=== PATIENT | female | born 2005 | race Caucasian/White ===

== ENCOUNTER 2024-07-01 18:27 | Emergency (ER) | payer OTHER, SELFPAY ==
--- NOTE | ~2024-07-01 | CT_ITS ---
EXAMINATION: CT abdomen pelvis w con DATE: 07/01/2024 19:42 INDICATION: abdominal pain sudden onset today TECHNIQUE: Computed tomography (CT) of the abdomen and pelvis was performed with 100 mL Omnipaque-350 intravenous contrast. Automated exposure control and iterative reconstruction technique were employe d. The dose-length product was 207.57 mGy-cm. COMPARISON: None. FINDINGS: Lower thorax: Unremarkable Liver: Normal. Biliary/Gallbladder: Gallbladder is normal. No bile duct dilation. Pancreas: No mass or duct dilation. Spleen: Normal. Adrenals:No mass. Kidneys: No suspicious mass, obstructing stone, or hydronephrosis. Patchy areas of hypoenhancement in the left upper pole and lower pole. GI tract: Mild distal esophageal and gastric wall edema. No small or large bowel dilation. Normal portia endix. Mesentery/Peritoneum: No ascites, mass, or free air. Retroperitoneum: No mass. Pelvis: Partially distended urinary bladder with moderate wall thickening. Normal uterus and bilatera l ovaries.. Soft Tissues: Soft tissues and body wall unremarkable. Bones: No acute osseous finding. IMPRESSION: Mild esophagitis/gastritis. Patchy left renal enhancement as can be seen with pyelonephritis. Bladder wall thickening, may be secondary to incomplete distention or cystitis. Correlate with urinal ysis. Reviewed, dictated and finalized at location K. IMPRESSION: Mild esophagitis/gastritis. Patchy left renal enhancement as can be seen with pyelonephritis. Bladder wall thickening, may be secondary to incomplete distention or cystitis. Correlate with urinalysis.
[2024-07-01 18:31] VITALS: BP 121/79; PULSE 133; RESP 20; TEMP 38.1; O2SAT 100
--- NOTE | 2024-07-01 18:38 | ECG_ITS ---
Test Date: 2024-07-01 18:59:52 Measurements Intervals [place] Rate: 113 P: 75 IN: 131 QRS: 92 QRSD: 82 T: -57 QT: 296 QTc: 407 Interpretive Statements SINUS TACHYCARDIA BORDERLINE RIGHT AXIS DEVIATION [QRS AXIS > 90] ST DEVIATION AND MODERATE T-WAVE ABNORMALITY, CONSIDER ANTEROLATERAL ISCHEMIA [-0.1+ mV T WAVE IN V3-V6] ST DEVIATION AND MODERATE T-WAVE ABNORMALITY, CONSIDER INFERIOR ISCHEMIA [-0.1+ mV T WAVE IN II/aVF] No previous ECG available for comparison Electronically Signed On 07-02-2024 11:39:48 CDT by Bartolo Arriola M.D.
[2024-07-01 19:08] LABS: BEDSIDEPREGUCG Negative (Negative)
[2024-07-01 19:28] LABS: Basophils Percent Auto 0.2 % (0.2-1.2); Hematocrit 38.5 % (37.0-47.0); Hemoglobin 13.5 g/dL (12.0-15.0); Immature Granulocyte Absolute 0.13 K/mm3 (0.00-0.031); Immature Granulocyte Percent A 0.7 % (0-0.5); Lymphocytes Absolute Auto 1.03 K/mm3 (0.9-3.2); Lymphocytes Percent Auto 5.5 % (18.3-44.2); Mean Corpuscular HGB Conc 35.1 g/dl (32-36); Mean Corpuscular Hemoglobin 29.2 pg (26-34); Mean Corpuscular Volume 83.3 fl (80-100); Mean Platelet Volume 12.4 fl (7.4-10.4); Monocytes Absolute Auto 1.3 K/mm3 (0.1-0.6); Neutrophils Absolute Auto 16.2 K/mm3 (1.3-6.7); Neutrophils Percent Auto 86.6 % (45.5-73.1); Platelet Count Result 177 k/mm3 (150-375); Red Blood Count 4.62 M/mm3 (4.2-5.4); Red Cell Distribution Width 13.5 % (11.5-14.5); White Blood Count 18.7 K/mm3 (4.5-10.0)
[2024-07-01 19:38] LABS: Pregnancy On Board Control Positive; Urine Pregnancy Test Negative
[2024-07-01 19:39] LABS: Lactic Acid Reflex 1.8 mmol/L (0.7-2.0)
[2024-07-01 19:41] LABS: Alanine Aminotransferase 12 U/L (6-35); Albumin Level 4.6 g/dL (3.7-5.6); Alkaline Phosphatase 69 U/L (45-116); Anion Gap 12 mmol/L (4-12); Aspartate Amino Transferase 20 U/L (14-36); Bilirubin,Total 0.7 mg/dL (0.2-1.3); Blood Urea Nitrogen 10 mg/dL (8-21); CRP 5.3 mg/dL (<1.0); Calcium 9.7 mg/dL (8.9-10.7); Carbon Dioxide 24 mmol/L (22-30); Chloride 97 mmol/L (98-107); Estimated CRCL calculation 93 ml/min; Estimated Glomerular Filt Rate > 60; Glucose 113 mg/dL (65-110); Lipase 71 U/L (23-300); Potassium 3.7 mmol/L (3.4-5.0); Sodium 133 mmol/L (134-143)
[2024-07-01 19:43] LABS: INR 1.1; Partial Thromboplastin Time 27.5 Seconds (22.3-36.8); Prothrombin Time 14.7 Seconds (11.1-14.7)
[2024-07-01 19:46] LABS: Add Urine Microscopic? YES; Appearance Urine Clear (Clear); Bacteria Urine 4+ /hpf; Bilirubin Urine Negative (Negative); Blood Urine Non-Hemolyzed Trace (Negative); Color Urine Yellow (Yellow); Glucose Urine UA Negative (Negative); Ketones Urine Negative (Negative); Leukocyte Esterase Ur 2+ LEU/UL (Negative); Nitrate Urine Positive (Negative); Non Pathogenic Casts 0-2; Protein Urine Negative (Negative); Specific Grav Ur 1.009 (1.001-1.035); Squamous Epithelial Cell Urine None Seen /hpf (Few); Urobilinogen Urine 0.2 mg/dL (<2.0); WBC Urine 21-50 /hpf (0-3); pH Urine 7.5 (5.0-9.0)
[2024-07-01 19:50] LABS: Troponin I < 0.012 ng/mL (0.000-0.034)
--- NOTE | 2024-07-01 20:09 | ED_ITS ---
HPI - General Adult General Chief complaint: Unspecified Stated complaint: pain Time Seen by Provider: 07/01/24 20:08 History of Present Illness HPI narrative: Pt presents with dysuria and frequency today and then developed fever and pain in low back. Pt is not nauseated or vomiting. symptoms started today. Related Data Allergies Allergy/AdvReac Type Severity Reaction Status Date / Time No Known Allergies Allergy Verified 07/01/24 20:33 Review of Systems Review of Systems: All systems reviewed & are unremarkable except as noted in HPI and below Exam Const: General: cooperative, healthy appearing and comfortable Limitations: no limitations HENMT: Head: normal to inspection Neck: Neck: normal visual inspection and full ROM Resp: Effort & Inspection: normal respiratory effort and able to speak in complete sentences Auscultation: clear to auscultation bilaterally Cardio: Rate: regular rate Rhythm: regular rhythm GI: Inspection: normal to inspection GI Palp: Yes abdominal tenderness (suprapubic and low back) Auscultation: normal bowel sounds Back/Spine/Pelvis: Back: no CVA tenderness Skin: General skin exam: normal color and no rashes or lesions noted Neuro: General: patient oriented x3 and moves all extremities Extrem: General: normal to inspection, full ROM and no clubbing, cyanosis or edema Psych: Appearance: grossly normal Mental Status: mental status grossly normal Speech and movement: Normal speech and movement present Affect: normal affect Attitude: cooperative Thought process: Normal thought process present Course Vital Signs Vital signs: Vital Signs Temperature 100.6 F H 07/01/24 18:31 Pulse Rate 133 H 07/01/24 18:31 Respiratory Rate 20 07/01/24 18:31 Blood Pressure 121/79 07/01/24 18:31 Pulse Oximetry 100 07/01/24 18:31 Oxygen Delivery Room Air 07/01/24 18:31 Temperature 100.6 F H 07/01/24 18:31 Pulse Rate 72 07/01/24 21:47 Respiratory Rate 18 07/01/24 21:47 Blood Pressure 118/70 07/01/24 21:47 Pulse Oximetry 98 07/01/24 21:47 Oxygen Delivery Room Air 07/01/24 18:31 Medical Decision Making [facility] Narrative Medical decision making narrative: Pt presents with fever and urinary symptoms. pt has 18k wbc and uti. Pt not vomiting so wants to go home. will give dose of rocephin and fentanyl and home on ceftin and norco and zofran. Vital Signs Vital Signs: Vital Signs Temperature 100.6 F H 07/01/24 18:31 Pulse Rate 133 H 07/01/24 18:31 Respiratory Rate 20 07/01/24 18:31 Blood Pressure 121/79 07/01/24 18:31 Pulse Oximetry 100 07/01/24 18:31 Oxygen Delivery Room Air 07/01/24 18:31 Temperature 100.6 F H 07/01/24 18:31 Pulse Rate 72 07/01/24 21:47 Respiratory Rate 18 07/01/24 21:47 Blood Pressure 118/70 07/01/24 21:47 Pulse Oximetry 98 07/01/24 21:47 Oxygen Delivery Room Air 07/01/24 18:31 Lab Data 07/01/24 19:03 07/01/24 19:03 Labs: Lab Results 07/01/24 07/01/24 Range/Units 19:03 19:06 WBC 18.7 H (4.5-10.0) K/mm3 RBC 4.62 (4.2-5.4) M/mm3 Hgb 13.5 (12.0-15.0) g/dL Hct 38.5 (37.0-47.0) % MCV 83.3 (80-100) fl MCH 29.2 (26-34) pg MCHC 35.1 (32-36) g/dl RDW 13.5 (11.5-14.5) % Plt Count 177 (150-375) k/mm3 MPV 12.4 H (7.4-10.4) fl Immature Gran % (Auto) 0.7 H (0-0.5) % Neut % (Auto) 86.6 H (45.5-73.1) % Lymph % (Auto) 5.5 L (18.3-44.2) % [place] % (Auto) 7.0 (2.6-8.5) % Eos % (Auto) 0.0 (0-4.4) % Baso % (Auto) 0.2 (0.2-1.2) % Lymph # (Auto) 1.03 (0.9-3.2) K/mm3 [place] # (Auto) 1.3 H (0.1-0.6) K/mm3 Eos # (Auto) 0.0 (0-0.3) K/mm3 Baso # (Auto) 0.0 (0.0-0.1) K/mm3 Abs Immat Gran (auto) 0.13 H (0.00-0.031) K/mm3 Absolute Neuts (auto) 16.2 H (1.3-6.7) K/mm3 Absolute Nucleated RBC 0.000 (0.0-0.012) K/mm3 Nucleated RBC % 0.0 (0.0-0.2) % PT 14.7 (11.1-14.7) Seconds INR 1.1 APTT 27.5 (22.3-36.8) Seconds Sodium 133 L (134-143) mmol/L Potassium 3.7 (3.4-5.0) mmol/L Chloride 97 L (98-107) mmol/L Carbon Dioxide 24 (22-30) mmol/L Anion Gap 12 (4-12) mmol/L BUN 10 (8-21) mg/dL Creatinine 0.70 (0.7-1.0) mg/dL Estim Creat Clear Calc 93 ml/min Estimated GFR > 60 (59 - ) Glucose 113 H (65-110) mg/dL Lactic Acid 1.8 (0.7-2.0) mmol/L Calcium 9.7 (8.9-10.7) mg/dL Total Bilirubin 0.7 (0.2-1.3) mg/dL AST 20 (14-36) U/L ALT 12 (6-35) U/L Alkaline Phosphatase 69 (45-116) U/L Troponin I < 0.012 (0.000-0.034) ng/mL C-Reactive Protein 5.3 H (<1.0) mg/dL Total Protein 9.0 H (6.3-8.6) g/dL Albumin 4.6 (3.7-5.6) g/dL Lipase 71 (23-300) U/L Urine Color Yellow (Yellow) Urine Appearance Clear (Clear) Urine pH 7.5 (5.0-9.0) Ur Specific [place] 1.009 (1.001-1.035) Urine Protein Negative (Negative) mg/dL Urine Glucose (UA) Negative (Negative) mg/dL Urine Ketones Negative (Negative) mg/dL Ur Blood (Man) Non-hemolyzed trace H (Negative) Urine Nitrate Positive H (Negative) Urine Bilirubin Negative (Negative) Urine Urobilinogen 0.2 (<2.0) mg/dL Leukocyte Esterase Rfl 2+ H (Negative) THOMAS/UL Urine RBC 3-5 H (0-2) /hpf Urine WBC 21-50 H (0-3) /hpf Ur Squamous Epith Cells None seen (Few) /hpf Urine Bacteria 4+ H /hpf Urine Casts 0-2 POC Urine HCG, Qual Negative (Negative) Urine Test Negative Discharge Plan Discharge Clinical Impression: UTI (urinary tract infection), Pyelonephritis Patient Disposition: Home, Self-Care Condition: Stable Instructions: Antibiotic Form, Kidney Infection (ED) Prescriptions: New cefdinir 300 mg capsule 300 mg PO Q12H Qty: 28 0RF ondansetron 4 mg tablet,disintegrating 4 mg PO Q8H PRN (Reason: nausea and vomiting) Qty: 14 0RF hydrocodone-acetaminophen 5-325 mg tablet 1 tablet PO Q6H PRN (Reason: pain) Qty: 10 0RF Follow-up/Referrals: Yi,Aiden Rowley MD [Primary Care Provider] -
[2024-07-01] MEDS: HYDROcodone/acetaminophen (*CRX) 5-325 MG TABLET 1 TAB PO (20:39)
[2024-07-01] MEDS: SODIUM CHLORIDE 0.9% IV 1,000 ML 999 ML IV CONT (20:40)
[2024-07-01] MEDS: cefTRIAXone 2 GM/NS 100 ML 2 GM/100 ML BAG IVPB (20:40)
[2024-07-01] MEDS: fentaNYL CITRATE INJ (*CRX) 100 MCG/2 ML VIAL 25 MCG IV PUSH (20:45)
--- NOTE | 2024-07-01 20:50 | PC.NURSE ---
patient presents to ED for abdominal pain. RN gave medications as per oct. patient tolerated well. patient is asking questions about discharge that RN can not answer at this time. patient informed to wait for discharge paperwork for further instructions. patient is alert and oriented and appears to have better pain management.
[2024-07-01 21:47] VITALS: BP 118/70; PULSE 72; RESP 18; O2SAT 98
[2024-07-08 11:57] LABS: Estimated CRCL calculation 82 ml/min; Estimated Glomerular Filt Rate > 60
== END 2024-07-01 21:51 | disposition home or self-care (01) ==
PROVIDERS: Registered Nurse; Emergency Provider Emergency Medicine; PCP Family Medicine
DX: N12 Tubulo-interstitial nephritis, not specified as acute or chronic (principal); R00.0 Tachycardia, unspecified; R94.31 Abnormal electrocardiogram [ECG] [EKG]; K20.90 Esophagitis, unspecified without bleeding; K29.70 Gastritis, unspecified, without bleeding
CPT/HCPCS: 36415; 74177; 80053; 81001; 81025; 82565; 83605; 83690; 84484; 85025; 85610; 85730; 86140; 87040; 87077; 87086; 87186; 93005; 96365; 96375; 99284; A9270; J0696; J3010; J7030; Q9967